=== PATIENT | male | born 1955 | race Caucasian/White ===

== ENCOUNTER → 2017-01-03 | Outpatient (CLI) | payer BC ==
[2017-01-03 17:47] LABS: CH 31.5; CHCM 34.5; HCT 38.9 % (39.0-53.0); HDW 2.64; HGB 13.6 gm/dL (13.0-17.5); MCH 32.1 pg (25.0-35.0); MCV 91.9 fL (80.0-100.0); Mean Platelet Volume 6.9; RBC 4.24 m/uL (4.30-5.90); RDW 12.8 % (11.5-15.5); WBC 6.4 k/uL (3.8-10.6)
[2017-01-03 18:02] LABS: Anion Gap 11 mmol/L; Blood Urea Nitrogen 26 mg/dL (9-20); Calcium 10.3 mg/dL (8.4-10.2); Carbon Dioxide 22 mmol/L (22-30); Chloride 109 mmol/L (98-107); Cholesterol 162 mg/dL (<200); Glucose 147 mg/dL (74-99); HDL Cholesterol 78 mg/dL (40-60); Non-African American GFR(MDRD) >60 (>60 ml/min/1.73 sqM); Potassium 4.9 mmol/L (3.5-5.1); Sodium 142 mmol/L (137-145); Triglycerides 94 mg/dL (<150)
== END | disposition home or self-care (01) ==
LOC: LABWHC1 17:13
PROVIDERS: ATTEND Internal Medicine Interventional Cardiology
DX: I25.10 Atherosclerotic heart disease of native coronary artery without angina pectoris (principal); E78.5 Hyperlipidemia, unspecified; I10 Essential (primary) hypertension
CPT/HCPCS: 36415; 80048; 80061; 85027

== ENCOUNTER 2020-04-07 07:12 | Day surgery (SDC) | payer BC ==
[~2020-04-07 07:12] MED LIST: PREMYELOGRAM MEDICATION REVIEW 1 EACH MISC PO ONE
[2020-04-07 12:22] VITALS: RESP 18
[2020-04-07 13:09] VITALS: PULSE 55
[2020-04-07 14:16] VITALS: BP 105/74; TEMP 98
--- NOTE | 2020-04-07 15:17 | CT ---
EXAMINATION TYPE: CT lumbar spine w con DATE OF EXAM: 04/07/2020 COMPARISON: 04/07/2020 lumbar spine myelogram HISTORY: Lumbar stenosis CT DLP: 465.2 mGycm Automated exposure control for dose reduction was used. CONTRAST: CT scan of the lumbar is performed with intrathecal contrast, patient injected with 8 ml mL of Isovue M300. No intravenous contrast. Enhanced CT of the lumbar spine was performed. Bone and soft tissue window settings are submitted as well as coronal and sagittal reconstructions. Postsurgical fixation changes of the spine including transpedicular screws at L1, L2, L4, and L5 on t he right, transpedicular screws at L1-L5 on the left, bilateral posterior fixation rods, interbody fu thierno devices at L2-L3 and L3-L4 with successful osseous fusion, and bilateral laminectomy changes at L1-L2 and L2-L3 and L4-L5. There is loosening around the bilateral L5 transpedicular screws within th e vertebral bodies, measuring up to 5 mm on the right and 4 mm on the left. Diffusely decreased osseous mineralization. There is diffuse degenerative disc disease, vacuum disc p henomenon, degenerative spurring, and degenerative endplate changes. Facet arthropathy of the remaini ng facet joints. Benign bone island of the L5 vertebral body. The visualized conus medullaris is norm al in caliber and ends the level of T12. The cauda equina nerve roots which are visualized to the lev el of L3 are normal, as well as at the level of L5-S1. There is poor intrathecal delineation of the t hecal sac at L4. Sacral Tarlov cysts. L1-L2: There is ventral indentation of the thecal sac. No central stenosis. Mild bilateral foraminal encroachment. L2-L3: No central stenosis. Mild to moderate right foraminal encroachment. L3-L4: No central stenosis. Left facet joints not well visualized. No right foraminal encroachment. L4-L5: There is no intrathecal contrast opacification at this level. Likely severe central stenosis. Likely moderate left foraminal encroachment. L5-S1: Grade 1 anterolisthesis of L5 on S1. No central stenosis. Likely severe bilateral foraminal en croachment. IMPRESSION: 1. Postsurgical fixation changes from L1 through L5 as above. There is loosening of the bilateral L5 transpedicular screws within the L5 vertebral bodies, measuring up to 5 mm on the right and 4 mm on t he left. 2. No intrathecal contrast opacification at the level of L4-5, likely with severe central stenosis. 3. Varying degrees of neural foramina narrowing as above.
--- NOTE | 2020-04-07 16:58 | FL ---
EXAMINATION TYPE: FL myelogram lumbosacral DATE OF EXAM: 04/07/2020 COMPARISON: NONE HISTORY: Lumbar stenosis. History of lumbar surgery. Informed consent was obtained and all the patient's questions were answered. The L2-L3 level was loc alized under fluoroscopy. Standard sterile technique was utilized as well as appropriate local anest hesia 1% Lidocaine. Spinal needle was introduced into the thecal sac under fluoroscopic guidance and 10 mL's of Isovue M300 was injected. The patient tolerated the procedure well and left the [facility] in stable condition. CT myelography is to follow. Total fluoroscopy time 53 seconds. IMPRESSION: Successful myelography lumbar spine.
== END 2020-04-07 14:35 | disposition home or self-care (01) ==
LOC: RADPROMAIN 07:12 → 1SOBS 09:02 → RADPROMAIN 14:35
PROVIDERS: ATTEND Orthopaedic Surgery Orthopaedic Surgery of the Spine
DX: M48.061 Spinal stenosis, lumbar region without neurogenic claudication (principal); T84.038A Mechanical loosening of other internal prosthetic joint, initial encounter; M81.0 Age-related osteoporosis without current pathological fracture; M51.16 Intervertebral disc disorders with radiculopathy, lumbar region; M47.26 Other spondylosis with radiculopathy, lumbar region; M43.16 Spondylolisthesis, lumbar region; Z96.698 Presence of other orthopedic joint implants; Z98.1 Arthrodesis status
CPT/HCPCS: 62304; 72132; J2001; Q9967

== ENCOUNTER → 2022-03-18 | Day surgery (SDC) | payer MEDICARE ==
[2022-03-18 07:04] VITALS: BP 133/78; PULSE 67; RESP 16; TEMP 97.2
== END ==
LOC: ORWHC2ENDO 06:39
PROVIDERS: ATTEND Internal Medicine Gastroenterology
DX: D50.9 Iron deficiency anemia, unspecified (principal); K29.70 Gastritis, unspecified, without bleeding; K57.30 Diverticulosis of large intestine without perforation or abscess without bleeding; K31.7 Polyp of stomach and duodenum
CPT/HCPCS: 91110

== ENCOUNTER 2024-04-01 06:48 | Day surgery (SDC) | payer MEDICARE ==
[2024-03-29 14:27] VITALS: BMI 23.7
[~2024-04-01 06:48] MED LIST changes: +ALPRAZolam 0.25 MG TAB PO PRN; +ALPRAZolam 0.5 MG TAB PO PRN; +HEPARIN SODIUM,PORCINE (1 ML) 2,500 UNIT in SODIUM CHLORIDE 0.9% 250 ML IRRIGATION PRN; +HEPARIN SODIUM,PORCINE 10,000 UNIT in SODIUM CHLORIDE 0.9% 1,000 ML IRRIGATION PRN; +NITROGLYCERIN SL TABS 0.4 MG TAB SUBLINGUAL PRN; -PREMYELOGRAM MEDICATION REVIEW 1 EACH MISC PO ONE
[2024-04-01] MEDS ORDERED: ASPIRIN 325 MG TAB PO ONE (07:00)
[2024-04-01 07:11] VITALS: RESP 18; TEMP 97
[2024-04-01] MEDS: SODIUM CHLORIDE 0.9% 1,000 ML in EMPTY BAG 1 BAG IV SCH (07:14)
[2024-04-01] MEDS: IV FLUID CONTINUATION 1,000 ML IV ONE (07:14)
[2024-04-01 07:32] LABS: Basophils # (A) 0.1 k/uL (0-0.2); Basophils % (A) 1 %; Eosinophils # (A) 0.3 k/uL (0-0.7); Eosinophils % (A) 5 %; HCT 43.6 % (39.0-53.0); HGB 14.1 gm/dL (13.0-17.5); Lymphocytes # (A) 1.4 k/uL (1.0-4.8); Lymphocytes % (A) 25 %; MCH 31.4 pg (25.0-35.0); MCHC 32.3 g/dL (31.0-37.0); MCV 97.2 fL (80.0-100.0); Mean Platelet Volume 8.2; Monocytes # (A) 0.6 k/uL (0-1.0); Monocytes % (A) 10 %; Neutrophils # (A) 3.1 k/uL (1.3-7.7); Neutrophils % (A) 56 %; Platelet Count 243 k/uL (150-450); RBC 4.49 m/uL (4.30-5.90); RDW 13.3 % (11.5-15.5); WBC 5.6 k/uL (3.8-10.6)
[2024-04-01 07:44] LABS: African American GFR (CKD) 52 (>60 ml/min/1.73 sqM); Anion Gap 7 mmol/L; Blood Urea Nitrogen 29 mg/dL (9-20); Calcium 9.5 mg/dL (8.4-10.2); Carbon Dioxide 30 mmol/L (22-30); Chloride 102 mmol/L (98-107); Glucose 98 mg/dL (74-99); Non-African American GFR(CKD) 45 (>60 ml/min/1.73 sqM); Potassium 3.9 mmol/L (3.5-5.1); Sodium 139 mmol/L (137-145)
[2024-04-01] MEDS ORDERED: LIDOCAINE 1% INJ 10MG/ML (20 ML MDV) ONE (09:22)
[2024-04-01] MEDS ORDERED: VERAPAMIL 2.5 MG/ML 2 ML AMP ONE (09:22)
[2024-04-01] MEDS ORDERED: HEPARIN SODIUM 1,000 UN/ML (10ML VL) ONE (09:44)
[2024-04-01] MEDS: HEPARIN SODIUM,PORCINE 10,000 UNIT in SODIUM CHLORIDE 0.9% 1,000 ML IRRIGATION ONE (09:50)
[2024-04-01] MEDS: HEPARIN SODIUM,PORCINE (1 ML) 2,500 UNIT in SODIUM CHLORIDE 0.9% 250 ML IRRIGATION ONE (09:50)
[2024-04-01] MEDS: MIDAZOLAM 2 MG/2 ML VIAL IVP ONE (09:55)
[2024-04-01] MEDS: LIDOCAINE 1% INJ 10MG/ML (20 ML MDV) SQ ONE (09:56)
[2024-04-01] MEDS: VERAPAMIL SYRINGE (5 MG/10 ML) INTRAARTER ONE (09:58)
[2024-04-01] MEDS: HEPARIN SODIUM 1,000 UN/ML (10ML VL) IV ONE (10:03)
[2024-04-01] MEDS: IOPAMIDOL-370 100ML BTL INJ ONE (10:10)
[2024-04-01] MEDS ORDERED: SODIUM CHLORIDE 0.9% 1,000 ML IV SCH (10:15)
[2024-04-01] MEDS ORDERED: RX INFO: IV CONTRAST WAS GIVEN 1 EACH MISC MISCELLANE PRN (10:15)
--- NOTE | 2024-04-01 10:19 | P.PCN ---
Date of Procedure: 04/01/24 Operative Findings: CARDIAC CATHETERIZATION PERFORMING PHYSICIAN: Darshan Hannon MD, RPVI PROCEDURE PERFORMED: 1. Selective right and left coronary angiogram 2. Ultrasound-guided access of the right radial artery INDICATION: symptomatic 68-year-old gentleman was abnormal myocardial perfusion imaging stress test COMPLICATION: None APPROACH: Right radial artery LEVEL OF SEDATION: Moderate with a sedation length of 14 minutes PROCEDURE DESCRIPTION: After obtaining an informed consent, the patient was brought to cardiac cardiac cath lab technologist. Local anesthesia was performed using lidocaine subcutaneously. The right radial artery was cannulated using micropuncture technique under ultrasound guidance and the micropuncture wire passed easily then placed a 5-Kosovan sheath over the wire. Subsequently the sheath was flushed and secured. Following that, 2 mg of verapamil along with 5000 unit heparin were given. Selective right and left coronary angiogram using a 6-Kosovan JR4 and JL 3.5 catheters. The procedure was completed there was no complication. SELECTIVE CORONARY ANGIOGRAM: The right coronary artery: large caliber vessel and a dominant vessel was intermediate disease distally appeared to be the same as before Left main: is angiographically normal The left circumflex: large caliber vessel and codominant vessel was patent stent in the distal left circumflex and intermediate disease involving OM1 appeared to be the same as before The left anterior descending artery: large-caliber vessel appears to have mild disease only CONCLUSION: 1. Patent stent in the distal LCx with intermediate disease involving OM1 appeared to be the same as before 2. Intermediate disease involving the distal RCA appears to be the same as before POSTPROCEDURE MANAGEMENT: medical treatment
[2024-04-01 13:34] VITALS: BP 128/78; PULSE 54
== END 2024-04-01 14:00 | disposition home or self-care (01) ==
LOC: CATHCVL 06:48
PROVIDERS: ATTEND Internal Medicine Interventional Cardiology
DX: R06.02 Shortness of breath (principal); I25.10 Atherosclerotic heart disease of native coronary artery without angina pectoris; R94.39 Abnormal result of other cardiovascular function study; I10 Essential (primary) hypertension; F10.90 Alcohol use, unspecified, uncomplicated; E78.5 Hyperlipidemia, unspecified; Z95.5 Presence of coronary angioplasty implant and graft; Z79.82 Long term (current) use of aspirin; Z79.899 Other long term (current) drug therapy
CPT/HCPCS: 93454; 80048; 85025; 99152; C1769; C1894; J2250; J1644 ×3; J2001; Q9967